=== PATIENT | female | born 1985 | race African-American/Black ===

== ENCOUNTER 2017-03-26 10:41 | Emergency (ER) | payer MEDICAID ==
[~2017-03-26] VITALS: Ht 165.1 cm; Wt 61.2 kg
[2017-03-26 10:51] VITALS: BP_SYST 131
[2017-03-26 11:45] VITALS: BP_SYST 127
[2017-03-26] MEDS ORDERED: MAGNESIUM CITRATE 300 ML ORAL SOLUTION PO ONE (11:45)
== END 2017-03-26 11:45 | disposition home or self-care (01) ==
LOC: SED 10:41
DX: B00.89 Other herpesviral infection (principal)
CPT/HCPCS: 99283

== ENCOUNTER 2017-05-09 22:47 | Emergency (ER) | payer MEDICAID ==
[~2017-05-09] VITALS: Ht 165.1 cm; Wt 62.6 kg
[2017-05-09 22:50] VITALS: BP_SYST 129
[2017-05-09 23:14] LABS: BILIRUBIN,URINE NEGATIVE (NEGATIVE); BLOOD, URINE NEGATIVE (NEGATIVE); CLARITY/URINE CLEAR (CLEAR); COLOR,URINE YELLOW (YELLOW); GLUCOSE,URINE NEGATIVE (NEGATIVE); KETONES,URINE TRACE (NEGATIVE); LEUKOCYTE ESTERASE ,URINE TRACE (NEGATIVE); NITRITE, URINE NEGATIVE (NEGATIVE); PROTEIN URINE TRACE (NEGATIVE)
[2017-05-09 23:31] LABS: BACTERIA,URINE MODERATE /HPF (None Seen)
[2017-05-10 02:09] VITALS: BP_SYST 140
[2017-05-13 02:30] LABS: CHLAMYDIA TRACHOMATIS NAA Negative (Negative); NEISSERIA GONORRHOEAE NAA Negative (Negative)
== END 2017-05-10 03:07 | disposition home or self-care (01) ==
LOC: SED 22:47
DX: N76.0 Acute vaginitis (principal); I10 Essential (primary) hypertension; F17.200 Nicotine dependence, unspecified, uncomplicated; Z71.6 Tobacco abuse counseling
CPT/HCPCS: 36415; 81000-TC; 81025; 86592; 86780; 87070-TC; 87086; 87210-TC; 87491; 87591; 99284

== ENCOUNTER 2018-06-25 14:50 | Emergency (ER) | payer MEDICAID ==
[~2018-06-25] VITALS: Ht 165.1 cm; Wt 66.2 kg
[2018-06-25 15:07] VITALS: BP_SYST 130
--- NOTE | 2018-06-25 15:12 | NUR ---
Pt placed to ER waiting room in stable condition with friend.
--- NOTE | 2018-06-25 15:41 | NUR ---
Pt placed to ER bed 07, report given to MAXIMILIANO Lim.
--- NOTE | 2018-06-25 16:00 | NUR ---
ER at bedside examining patient.
[2018-06-25] MEDS ORDERED: PROPARACAINE (OPTHANINE 0.5%) 15 ML DROPS OP ONE (16:15)
--- NOTE | 2018-06-25 16:19 | NUR ---
OPTHAINE EYE DROPS INSTILLED INTO BOTH EYES ORDERED BY DR AVALOS.
--- NOTE | 2018-06-25 16:22 | NUR ---
PT EXPRESSED GOOD RELIEF TOWARDS HER EYES AFTER INTERVENTION.
[2018-06-25] MEDS ORDERED: IBUPROFEN 600 MG TABLET PO ONE (16:45)
[2018-06-25] MEDS ORDERED: AMOXICILLIN/CLAVULANATE POTASSIUM 875 MG TABLET PO ONE (16:45)
[2018-06-25] MEDS ORDERED: ERYTHROMYCIN 0.5% EYE OINT 3.5 GM OP ONE (16:45)
--- NOTE | 2018-06-25 17:10 | NUR ---
Patient given written and verbal discharge instructions and verbalizes understanding. ER MD AVALOS discussed with patient the results and treatment provided. Patient in stable condition. ID arm band removed. Rx of AUGMENTIN, NORCO, MOTRIN, SULFACETAMIDE EYE OINTMENT given. Patient educated on pain management and to follow up with PMD. Pain Scale 8. Opportunity for questions provided and answered. Medication side effect fact sheet provided.
== END 2018-06-25 17:10 | disposition home or self-care (01) ==
LOC: SED 14:50
DX: H01.006 Unspecified blepharitis left eye, unspecified eyelid (principal); H01.003 Unspecified blepharitis right eye, unspecified eyelid; R03.0 Elevated blood-pressure reading, without diagnosis of hypertension
CPT/HCPCS: 99284

== ENCOUNTER 2021-05-27 18:01 | Emergency (ER) | payer MEDICAID ==
[~2021-05-27] VITALS: Ht 165.1 cm; Wt 77.1 kg
[2021-05-27 18:16] VITALS: BP_SYST 123
[2021-05-27 19:00] LABS: BILIRUBIN,URINE NEGATIVE (NEGATIVE); BLOOD, URINE 3+ (NEGATIVE); COLOR,URINE ORANGE (YELLOW); PROTEIN URINE 3+ (NEGATIVE)
--- NOTE | 2021-05-27 19:00 | NUR ---
Patient to ER bed hallway to gown for evaluation. Side rails up. Report given to 0.
--- NOTE | 2021-05-27 19:00 | NUR ---
Pt walked in to ER with c/o burning, urgency and frequency x3 days, bloody urine noted. Abdominal pain 9/10. Denies n/v, no fevers noted. V/S stable, no acute distress noted.
[2021-05-27 19:04] LABS: CLARITY/URINE CLOUDY (CLEAR); GLUCOSE,URINE NEGATIVE (NEGATIVE); KETONES,URINE NEGATIVE (NEGATIVE); LEUKOCYTE ESTERASE ,URINE 3+ (NEGATIVE); NITRITE, URINE NEGATIVE (NEGATIVE); UROBILINOGEN,URINE >=8 (0.2-1.0)
[2021-05-27 19:05] LABS: RBC,URINE >100 /HPF (0-3)
--- NOTE | 2021-05-27 19:05 | NUR ---
ER Dr. Zhong at bedside examining patient.
[2021-05-27 19:06] LABS: BACTERIA,URINE FEW /HPF (None Seen); MUCUS,URINE None Seen /LPF (None Seen); WBC,URINE 50-80 /HPF (0-3)
[2021-05-27 19:09] LABS: BASOPHILS # (AUTO) 0.1 K/uL (0.0-0.2); BASOPHILS % (AUTO) 1.1 % (0.0-2.0); EOSINOPHILS # (AUTO) 0.1 K/uL (0.0-0.4); EOSINOPHILS % (AUTO) 0.8 % (0.0-4.0); HEMATOCRIT 30.4 % (36-48); HEMOGLOBIN 9.7 g/dL (12.0-16.0); LYMPHOCYTES # (AUTO) 2.2 K/uL (1.0-5.5); LYMPHOCYTES % (AUTO) 33.9 % (20.5-51.5); MEAN CORPUSCULAR HEMOGLOBIN 26 pg (27-31); MEAN CORPUSCULAR HGB CONC 32 % (32-36); MEAN CORPUSCULAR VOLUME 80 fL (79.0-98.0); MONOCYTES # (AUTO) 0.6 K/uL (0.0-1.0); MONOCYTES % (AUTO) 8.8 % (1.7-9.3); NEUTROPHILS # (AUTO) 3.6 K/uL (1.8-7.7); NEUTROPHILS % (AUTO) 55.4 % (40.0-70.0); PLATELET COUNT (AUTO) 405 K/uL (130-430); RED CELL DISTRIBUTION WIDTH 16.7 % (9.0-15.0); WHITE BLOOD COUNT (AUTO) 6.6 K/uL (4.8-10.8)
[2021-05-27] MEDS ORDERED: NITR100C PO (19:16)
[2021-05-27 19:18] LABS: CREATININE 0.98 mg/dL (0.55-1.30); POTASSIUM 3.5 mmol/L (3.5-5.1)
[2021-05-27 19:21] LABS: PROTHROMBIN TIME 10.2 SECS (9.5-12.5)
[2021-05-27 19:25] LABS: ALBUMIN 3.6 g/dL (3.4-4.8); BILIRUBIN,DIRECT 0.1 mg/dL (0.0-0.3); TOTAL BILIRUBIN 0.4 mg/dL (0.0-1.0)
[2021-05-27 19:34] VITALS: BP_SYST 123
--- NOTE | 2021-05-27 19:35 | NUR ---
Patient given written and verbal discharge instructions and verbalizes understanding. ER MD discussed with patient the results and treatment provided. Patient in stable condition. ID arm band removed. Rx of macrobid given. Patient educated on pain management and to follow up with PMD. Pain Scale 0. Opportunity for questions provided and answered. Medication side effect fact sheet provided.
== END 2021-05-27 19:35 | disposition home or self-care (01) ==
LOC: SED 18:01
DX: R30.0 Dysuria (principal); R31.9 Hematuria, unspecified
CPT/HCPCS: 36415; 80048; 80076; 81000; 82550; 83690; 85025; 85610-TC; 87086; 99283